=== PATIENT | female | born 1965 | race Caucasian/White ===

== ENCOUNTER 2024-12-25 09:32 | Emergency (ER) | payer OTHER ==
[~2024-12-25] VITALS: Ht 167.6 cm; Wt 81.6 kg
[2024-12-25 09:40] VITALS: BP 161/96
[2024-12-25 10:18] LABS: PLATELET COUNT (AUTO) 285 K/uL (179-408); RED BLOOD CELL COUNT(AUTO) 4.45 MIL/uL (3.63-4.92); RED CELL DISTRIBUTION WIDTH 12.9 % (12.3-17.7); WHITE BLOOD COUNT (AUTO) 12.7 K/uL (3.8-11.8)
[2024-12-25] MEDS ORDERED: ONDANSETRON 4 MG/2 ML VIAL ONE (10:18)
[2024-12-25] MEDS ORDERED: HYDROMORPHONE 1 MG/1 ML DISP.SYRIN ONE ×2 (10:19→11:12)
[2024-12-25] MEDS: HYDROMORPHONE 1 MG/1 ML DISP.SYRIN IV ONE ×2 (10:23→11:16)
[2024-12-25] MEDS: ONDANSETRON 4 MG/2 ML VIAL IV ONE (10:23)
[2024-12-25 10:27] LABS: CREATININE 0.7 mg/dL (0.6-1.3); SODIUM SERUM 142.0 mmol/L (136-145); UREA NITROGEN, BLOOD 10.0 mg/dL (7-18)
[2024-12-25] MEDS: DEXTROSE IV ONE (11:07)
[2024-12-25] MEDS: PENICILLIN POTASSIUM IV ONE (11:07)
[2024-12-25] MEDS ORDERED: HYDR4TAB4 PO (11:42)
[2024-12-25] MEDS ORDERED: AMOX-430 PO (11:42)
[2024-12-25] MEDS ORDERED: ONDA4TAB5 PO (11:42)
[2024-12-25] MEDS ORDERED: FLAS1KIT2 TP (11:44)
[2024-12-25] MEDS ORDERED: FLAS1EAC2 TP (11:44)
[2024-12-25 12:01] VITALS: BP 157/90; O2SAT 98
== END 2024-12-25 12:02 | disposition home or self-care (01) ==
LOC: ER 09:32
DX: S61.431A Puncture wound without foreign body of right hand, initial encounter (principal); L03.011 Cellulitis of right finger; I11.9 Hypertensive heart disease without heart failure; E88.810 Metabolic syndrome; E78.5 Hyperlipidemia, unspecified; Z86.73 Personal history of transient ischemic attack (TIA), and cerebral infarction without residual deficits; Z88.5 Allergy status to narcotic agent; W55.01XA Bitten by cat, initial encounter; Y93.89 Activity, other specified; Y92.89 Other specified places as the place of occurrence of the external cause; Y99.9 Unspecified external cause status
CPT/HCPCS: 99284; 96365; 96375; 80048; 85025; 87070; 87077; 36415; 96376; J2405; J2540; J1171 ×2; A4606; A4663